=== PATIENT | female | born 1960 | race Caucasian/White ===

== ENCOUNTER → 2017-10-13 14:23 | Outpatient (POV) | payer OTHER, SELFPAY | PROVIDERS: Visit Provider Physician Assistant | DX: Z00.00 Encounter for general adult medical examination without abnormal findings (principal) ==

== ENCOUNTER → 2018-01-12 14:37 | Outpatient (POV) | payer OTHER, SELFPAY | PROVIDERS: Visit Provider Physician Assistant | DX: Z00.00 Encounter for general adult medical examination without abnormal findings (principal) ==

== ENCOUNTER → 2019-05-14 07:24 | Outpatient (CLI) | payer OTHER, SELFPAY ==
[2019-05-14 07:55] LABS: Basophils # 0.1 K/mm3 (0-0.2); Basophils % 1.2 % (0.1-2.0); Eosinophils # 0.8 K/mm3 (0.0-0.4); Eosinophils % 9.2 % (0.1-12.0); Hematocrit 44.9 % (37.0-47.0); Hemoglobin 14.2 g/dL (12.2-16.2); Lymphocytes # 1.4 K/mm3 (0.7-4.5); Lymphocytes % 16.8 % (10-50); Mean Corpuscular HGB Conc 31.7 g/dL (31.8-35.4); Mean Corpuscular Hemoglobin 30.3 pg (27.0-31.2); Mean Corpuscular Volume 95.4 fl (81-99); Mean Platelet Volume 6.9 fl (7.4-10.4); Monocytes # 0.3 K/mm3 (0.1-1.0); Monocytes % 2.9 % (1.7-9.3); Neutrophils % 69.9 % (37.0-80.0); Platelet Count 340 K/mm3 (142-424); Red Cell Distribution Width 13.6 % (11.5-17.5); White Blood Count 8.5 K/mm3 (4.8-10.8)
[2019-05-14 09:44] LABS: Alanine Aminotransferase 28 U/L (12-78); Albumin Level 3.6 gm/dL (3.4-5.0); Albumin/Globulin Ratio 1.3 (1.1-1.8); Alkaline Phosphatase 131 U/L (46-116); Anion Gap 13.1 mEq/L (5-15); Aspartate Amino Transferase 22 U/L (15-37); Bilirubin,Total 0.5 mg/dL (0.2-1.0); Blood Urea Nitrogen 18 mg/dL (7-18); Calcium 9.2 mg/dL (8.5-10.1); Carbon Dioxide 28 mmol/L (21.0-32.0); Chloride 102 mmol/L (98-107); Chol/HDL Ratio 1.9 (1-3.5); Cholesterol 210 mg/dL (140-200); Creatinine,Serum 0.97 mg/dL (0.55-1.02); Estimated Glomerular Filt Rate 59 ml/min (>60); GFR (African American) 71 ML/MIN (>60); Globulin 2.8 gm/dl (1.3-3.2); Glucose 74 mg/dL (74-106); HDL Cholesterol 108 mg/dL (29-89); LDL Cholesterol 88 mg/dL (0-130); Potassium 4.1 mmoL/L (3.5-5.1); Sodium 139 mmol/L (136-145); Thyroid Stimulating Hormone 2.43 uIU/ml (0.358-3.740); Total Protein,Serum 6.4 gm/dL (6.4-8.2); Triglycerides 71 mg/dL (30-200); VLDL Cholesterol 14 mg/dL (0-40)
== END ==
PROVIDERS: Visit Provider Nurse Practitioner Family
DX: Z00.00 Encounter for general adult medical examination without abnormal findings (principal); F41.8 Other specified anxiety disorders
CPT/HCPCS: 36415; 80053; 80061; 84443; 85025

== ENCOUNTER 2019-08-15 17:58 | Emergency (ER) | payer OTHER, SELFPAY ==
[2019-08-15 17:59] VITALS: BP 201/136; PULSE 105; RESP 20; TEMP 36.9; O2SAT 95; BMI 22.7
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
[2019-08-15 18:31] VITALS: BP 197/112; PULSE 98; RESP 20; TEMP 37.1; O2SAT 98
== END 2019-08-15 18:32 ==
PROVIDERS: Emergency Provider Family Medicine
DX: F10.10 Alcohol abuse, uncomplicated (principal); R03.0 Elevated blood-pressure reading, without diagnosis of hypertension; Z88.2 Allergy status to sulfonamides
CPT/HCPCS: 99282

== ENCOUNTER 2020-03-27 06:38 | Emergency (ER) | payer OTHER, SELFPAY ==
[2020-03-27] VITALS (7 sets, daily range): BP systolic 148–188; BP diastolic 87–110; PULSE 78–95; RESP 16–20; TEMP 36.8; O2SAT 92–99; BMI 21.9
--- NOTE | 2020-03-27 07:06 | CT_ITS ---
PROCEDURE: CT ABDOMEN PELVIS W CON CLINICAL INDICATION: LUQ pain Left upper quadrant pain with diarrhea and cramping COMPARISON: No exams were available for comparison TECHNIQUE: IV Contrast: 75ML Isovue 370 Oral Contrast 10ml Gastroview Axial images obtained with sagittal and coronal reformats. All CT scans at the facility use one or more dose reduction, viz: automated exposure control, ma/kV adjustment per patient size (including targeted exams where dose is matched to indication, i.e. head), or iterative reconstruction technique. FINDINGS: Atelectatic change or scarring noted in the lung bases. There is a medium-sized hiatal hernia. Gallbladder appears distended. The liver and spleen have an unremarkable appearance. Unremarkable appearing pancreas. There is thickening the wall of the antrum of the stomach and of the pyloric and duodenal bulb area which may represent gastroduodenitis. The adrenal glands and kidneys are unremarkable. There is a duodenal diverticulum noted Urinary bladder is distended. No evidence of appendicitis or diverticulitis. There are some scattered colonic diverticula. No intestinal obstruction or free air. There are degenerative changes in the lumbar spine. There is a lucent lesion involving the spinous process of L4 well-circumscribed measuring approximately 12 mm. IMPRESSION: 1. Thickening of the antrum and pyloric area of the stomach and duodenal bulb suggesting gastroduodenitis. 2. Medium-sized hiatal hernia 3. Colonic diverticulosis without evidence of diverticulitis Dictated by: Morales Robin MD 03/27/2020 09:31 Morales Robin MD in OV 03/27/2020 09:31
[2020-03-27 07:24] LABS: Microscopic, Urine URINE MICROSCOPIC (MICROSCOPIC)
--- NOTE | 2020-03-27 07:24 | PC.NURSE ---
Pt finished PO contrast at this time.
--- NOTE | 2020-03-27 07:25 | PC.NURSE ---
Contrast drank, radiology aware
[2020-03-27 07:31] LABS: Basophils # 0.1 K/mm3 (0-0.2); Basophils % 0.8 % (0.1-2.0); Eosinophils # 0.1 K/mm3 (0.0-0.4); Eosinophils % 0.7 % (0.1-12.0); Hemoglobin 12.7 g/dL (12.2-16.2); Lymphocytes # 2.2 K/mm3 (0.7-4.5); Lymphocytes % 23.8 % (10-50); Mean Corpuscular HGB Conc 32.5 g/dL (31.8-35.4); Mean Corpuscular Hemoglobin 28.1 pg (27.0-31.2); Mean Corpuscular Volume 86.6 fl (81-99); Mean Platelet Volume 7.2 fl (7.4-10.4); Monocytes # 0.4 K/mm3 (0.1-1.0); Monocytes % 4.2 % (1.7-9.3); Neutrophils # 6.6 K/mm3 (1.8-7.8); Neutrophils % 70.5 % (37.0-80.0); Platelet Count 543 K/mm3 (142-424); Red Cell Distribution Width 14.8 % (11.5-17.5); White Blood Count 9.3 K/mm3 (4.8-10.8)
[2020-03-27 07:37] LABS: Appearance,Urine CLEAR (Clear); Bilirubin,Urine Negative (Negative); Blood, Urine Negative (Negative); Color,Urine YELLOW (Yellow); Glucose,Urine (UA) Negative (Negative); Ketones,Urine Negative (Negative); Leukocyte Esterase,Urine Negative (Negative); Nitrate,Urine Negative (Negative); PH,Urine 5.5 (5.0-8.5); Protein,Urine Negative (Negative); Specific Gravity, Urine <= 1.005 (1.005-1.030); Urobilinogen,Urine 0.2 EU/dl (0.2)
[2020-03-27 07:38] LABS: Chloride 107 mmol/L (98-107); Potassium 4.1 mmoL/L (3.5-5.1); Sodium 141 mmol/L (136-145)
[2020-03-27 07:40] LABS: Alanine Aminotransferase 22 U/L (12-78); Amylase 116 U/L (30-110); Aspartate Amino Transferase 34 U/L (14-36); Blood Urea Nitrogen 10 mg/dl (7-17); Creatinine Clearance Estimated 59 mL/min (50-200); Estimated Glomerular Filt Rate 73 ml/min (>60); GFR (African American) 88 ML/MIN (>60)
[2020-03-27 07:41] LABS: Albumin Level 4.3 g/dl (3.5-5.0); Albumin/Globulin Ratio 1.5 (1.1-1.8); Alkaline Phosphatase 104 U/L (38-126); Anion Gap 12.1 mEq/L (5-15); Bilirubin,Total 0.3 mg/dl (0.2-1.3); Calcium 9.1 mg/dl (8.4-10.2); Carbon Dioxide 26 mmol/L (22.0-30.0); Globulin 2.9 g/dL (1.3-3.2); Glucose 96 mg/dl (74-100); Lipase 323 U/L (23-300); Total Protein,Serum 7.2 g/dl (6.3-8.2)
--- NOTE | 2020-03-27 07:54 | HMH.EDNVD ---
ED Disposition Clinical Impression: Gastroenteritis Disposition: Home, Self-Care Condition on Discharge: Good Instructions: DI for Acute Abdomen Additional Instructions: fluids and call pcp for follow up Referrals: Juarez Kendall MD [Primary Care Provider] - - Critical Care Critical Care Time: No Attestation: On 03/27/20, the high probability of a clinically significant, sudden or life threatening deterioration of the following system(s) required my full and direct attention, intervention and personal management. The time I documented below is in addition to time spent performing reported procedures but includes the following listed in this critical care notation. Medical Decision Making - Medical Records Medical records reviewed: Yes: I reviewed the patient's medical records. - Huber Inquiry Pt receiving controlled substance: No Vital Signs: 03/27/20 06:56 03/27/20 07:30 03/27/20 08:09 Temperature 98.3 F Temperature Source Oral Pulse Rate [Right] 95 H 83 82 Respiratory Rate 16 20 20 Blood Pressure [Left Arm] 169/106 H 163/99 H 173/102 H Blood Pressure Mean [Left Arm] 127 120 125 Blood Pressure Source [Left Arm] Automatic Cuff Automatic Cuff Automatic Cuff Blood Pressure Position [Left Arm] Sitting Sitting Sitting 02 Sat by Pulse Oximetry 98 92 L 99 Oxygen Delivery Method Room Air Room Air Room Air 03/27/20 08:39 03/27/20 10:47 Temperature Temperature Source Pulse Rate [Right] 78 85 Respiratory Rate 18 20 Blood Pressure [Left Arm] 148/87 H 162/105 H Blood Pressure Mean [Left Arm] 107 124 Blood Pressure Source [Left Arm] Automatic Cuff Automatic Cuff Blood Pressure Position [Left Arm] Sitting Sitting 02 Sat by Pulse Oximetry 97 98 Oxygen Delivery Method Room Air - Lab Data Lab results reviewed: Yes: I reviewed the patient's lab results. Lab Results 03/27/20 07:05: Urine Color Yellow, Urine Appearance Clear, Urine pH 5.5, Ur Specific [place] <= 1.005, Urine Protein Negative, Urine Glucose (UA) Negative, Urine Ketones Negative, Urine Blood Negative, Urine Nitrate Negative, Urine Bilirubin Negative, Urine Urobilinogen 0.2, Ur Leukocyte Esterase Negative, Urine WBC 3-5, Ur Squamous Epith Cells 3-5 03/27/20 07:05: WBC 9.3, RBC 4.50, Hgb 12.7, Hct 39.0, MCV 86.6, MCH 28.1, MCHC 32.5, RDW 14.8, Plt Count 543 H, MPV 7.2 L, Neut % (Auto) 70.5, Lymph % (Auto) 23.8, Pender % (Auto) 4.2, Eos % (Auto) 0.7, Baso % (Auto) 0.8, Neut # (Auto) 6.6, Lymph # (Auto) 2.2, Pender # (Auto) 0.4, Eos # (Auto) 0.1, Baso # (Auto) 0.1, ESR 22 03/27/20 07:05: Sodium 141, Potassium 4.1, Chloride 107, Carbon Dioxide 26, Anion Gap 12.1, BUN 10, Creatinine 0.80, Estimated Creat Clear 59, Estimated GFR 73, Est GFR ( Amer) 88, Glucose 96, Calcium 9.1, Total Bilirubin 0.3, AST 34, ALT 22, Alkaline Phosphatase 104, C-Reactive Protein 0.7, Total Protein 7.2, Albumin 4.3, Globulin 2.9, Albumin/Globulin Ratio 1.5, Amylase 116 H, Lipase 323 H, Procalcitonin 0.048 03/27/20 07:05: SARS-CoV-2 IgG Ab (Rapid) Negative, SARS-CoV-2 IgM Ab (Rapid) Negative Result diagrams: 03/27/20 07:05 03/27/20 07:05 Orders (Tests/Meds): ED MEDICATIONS Generic Name Dose Route Start Last Admin Trade Name Freq PRN Reason Stop Dose Admin Sodium Chloride 8 ml 03/27/20 07:06 Sodium Chloride 0.9% 10ml Vial IV 04/26/20 07:05 NEEDED PRN dilute pepcid Discontinued Medications Generic Name Dose Route Start Last Admin Trade Name Freq PRN Reason Stop Dose Admin Diatrizoate Meglum/Diatrizoate Sod 30 ml 03/27/20 07:06 03/27/20 07:10 Diatrizoate Leilani 66% & Diatrizoate Na 10% 30ml Udc PO 03/27/20 07:07 30 ml ONCE ONE Administration Famotidine 20 mg 03/27/20 07:06 03/27/20 07:10 Famotidine 20mg/2ml Vial IV 03/27/20 07:07 20 mg ONCE ONE Administration Sodium Chloride 1,000 mls @ 999 mls/hr 03/27/20 07:15 03/27/20 07:12 Sod Chlor 0.9% 1000ml Bag IV 03/27/20 08:15 999 mls/hr .Q1H1M BALDO Administrat
[2020-03-27 07:57] LABS: Procalcitonin 0.048 ng/mL (0.0-2.0)
[2020-03-27 08:02] LABS: Coronavirus 19 IgG Antibody Negative (Negative); Coronavirus 19 IgM Antibody Negative (Negative)
[2020-03-27 08:03] LABS: Erythrocyte Sedimentation Rate 22 mm/hr (0-30)
[2020-03-27 08:06] LABS: C-Reactive Protein 0.7 mg/L (0-4)
--- NOTE | 2020-03-27 11:33 | PC.NURSE ---
Per MD Santoyo, pt is okay to leave and fu with PCP for blood pressure of 186/110. Pt denies any symptoms at this time
== END 2020-03-27 12:00 | disposition home or self-care (01) ==
PROVIDERS: Emergency Provider Emergency Medicine; PCP Internal Medicine Adolescent Medicine
DX: K52.9 Noninfective gastroenteritis and colitis, unspecified (principal); Z01.84 Encounter for antibody response examination; Z88.2 Allergy status to sulfonamides
CPT/HCPCS: 74177; 80053; 81001; 82150; 83690; 84145; 85025; 85651; 86140; 86328; 96365; 96375; 99284; J2405; Q9967

== ENCOUNTER → 2021-05-08 15:08 | Outpatient (POV) | payer SELFPAY | PROVIDERS: Visit Provider Dermatology | DX: Z00.00 Encounter for general adult medical examination without abnormal findings (principal) ==

== ENCOUNTER → 2021-12-07 10:55 | Outpatient (CLI) | payer BC, SELFPAY ==
--- NOTE | 2021-12-07 11:00 | MM_ITS ---
PROCEDURE INFORMATION: Exam: MG Bilateral Screening 3D Mammography Exam date and time: 12/07/2021 10:57 AM Age: 60 years old Clinical indication: Screening examination TECHNIQUE: Imaging protocol: Bilateral Screening tomosynthesis and 2D mammography including computer-aided detection (CAD) when performed. COMPARISON: 1. MG DMSB DIG MAMM-SCREEN TRICE W/CAD 07/05/2016 9:38 AM 2. MG DMDXUL DIG MAMM-DX UNI-LT 12/21/2015 1:42 PM FINDINGS: MAMMOGRAPHY: Breast composition: The breasts are heterogeneously dense, which may obscure small masses. Mass: None. Architectural distortion: None. Calcifications: No suspicious calcifications. Asymmetric density: None. Skin thickening: None. Axillary adenopathy: None. IMPRESSION: No mammographic evidence of malignancy. Annual screening is recommended unless otherwise clinically indicated. ASSESSMENT: BI-RADS Category 1: Negative
== END ==
PROVIDERS: PCP Internal Medicine Adolescent Medicine; Visit Provider Nurse Practitioner Family
DX: Z12.31 Encounter for screening mammogram for malignant neoplasm of breast (principal)
CPT/HCPCS: 77063; 77067

== ENCOUNTER 2022-09-29 12:09 | Emergency (ER) | payer BC, SELFPAY ==
[2022-09-29 12:09] VITALS: BP 145/85; PULSE 72; RESP 18; TEMP 36.8; O2SAT 96; BMI 23.3
--- NOTE | 2022-09-29 12:24 | EXP.UTC ---
Discharge Plan Disposition Patient Disposition: Home, Self-Care Condition: Good Prescriptions Prescriptions: New amoxicillin [amoxicillin] 875 mg tablet 875 mg PO Q12H Qty: 20 0RF benzonatate [benzonatate] 100 mg capsule 100 mg PO TIDP PRN (Reason: Cough) Qty: 30 0RF methylprednisolone 4 mg Tablets,Dose Pack 4 mg PO DIRECTED Qty: 21 0RF No Action ondansetron 4 MG tablet,disintegrating 4 mg PO Q8HP PRN (Reason: Nausea) Qty: 20 0RF cetirizine 10 MG tablet 10 mg PO DAILY Label Comments: TAKE ONE TABLET BY MOUTH EVERY DAY hydroxyzine HCl 25 MG tablet 25 mg PO DAILY Referrals Follow up/Referrals: Gustavo Altamirano MD [Primary Care Provider] - See instructions Activity Restrictions/Add. Instructions Additional Instructions/Restrictions: Drink plenty of fluids. Take tylenol or ibuprofen for pain or fever. Take the medications as directed. Follow up with your regular doctor. GO TO THE ER FOR ANY WORSENING SYMPTOMS Clinical Impressions Clinical Impression: Bronchitis Instructions Patient Instructions: Acute Bronchitis, DI for Acute Bronchitis Discharge ED Provider: Nitesh Campbell [facility] General Stated complaint: Congestion Time Seen by Provider: 09/29/22 12:24 History of Present Illness Provider Complaint: she c/o chest congestion for the past 1 week. Related Data Home Medications Medication Instructions Recorded Confirmed cetirizine 10 mg tablet 10 mg PO DAILY Allergy symptoms 05/16/19 05/16/19 hydroxyzine HCl 25 mg tablet 25 mg PO DAILY Anxiety 05/16/19 05/16/19 Previous Rx's Medication Instructions Recorded ondansetron 4 mg disintegrating 4 mg PO Q8HP PRN Nausea ##20 07/21/19 tablet amoxicillin 875 mg tablet 875 mg PO Q12H #20 tabs 09/29/22 benzonatate 100 mg capsule 100 mg PO TIDP PRN Cough #30 caps 09/29/22 methylprednisolone 4 mg tablets in 4 mg PO DIRECTED #21 tabs 09/29/22 a dose pack Allergies Allergy/AdvReac Type Severity Reaction Status Date / Time Sulfa (Sulfonamide Allergy Intermediate I-RASH Verified 07/21/19 09:49 Antibiotics) [SULFA (SULFONAMIDE ANTIBIOTICS)] [facility] Disclaimer: The information contained in this section may have been updated after the patient was seen, as this information can be updated by other users. Social History Smoking Status: Never smoker alcohol intake: current current occupational status: employed Travel in the last 8 weeks: None housing: house ROS Obtained: Yes All systems reviewed & no additional complaints except as documented Constitutional Constitutional: Denies chills and Denies fever(s) Eyes Eyes: Denies eye discharge ENT Ears, Nose, Mouth, and Throat: Denies dizziness, Denies otalgia and Denies sore throat Cardiovascular Cardiovascular: Denies chest pain Respiratory Respiratory: Denies shortness of breath, Reports chest congestion, Denies cough, Denies stridor and Denies wheezing Gastrointestinal Gastrointestingal: Denies nausea or vomiting Musculoskeletal Musculoskeletal: Reports system reviewed and no additional complaints, except as documented and Denies arthralgias Integumentary/Breasts Skin/Breast: Denies rash Neurologic Neurologic: Denies dizziness and Denies paresthesias Allergic/Immunologic Allergic/Immunologic: Denies wheezing Physical Exam General General appearance: alert and in no apparent distress Head Head exam: atraumatic, normocephalic and normal inspection Eye Eye exam: Present normal appearance, PERRL and EOMI ENT ENT exam: Present normal exam, normal oropharynx, mucous membranes moist, TM's normal bilaterally and normal external ear exam Neck Neck exam: Present normal inspection, full ROM and trachea midline; Absent meningismus or lymphadenopathy Chest Chest inspection: Present normal inspection and symmetric chest wall rise; Absent tenderness Respiratory Resp
[2022-09-29 13:14] VITALS: BP 145/85; PULSE 72; RESP 18; TEMP 36.8; O2SAT 96
== END 2022-09-29 13:15 | disposition home or self-care (01) ==
PROVIDERS: Emergency Provider Nurse Practitioner Family; PCP Internal Medicine
DX: J20.9 Acute bronchitis, unspecified (principal)
CPT/HCPCS: 99204; 99212; G0463

== ENCOUNTER 2023-10-12 11:30 | Emergency (ER) | payer MEDICARE, SELFPAY ==
[2023-10-12 11:50] VITALS: BP 176/118; PULSE 112; RESP 22; TEMP 36.7; O2SAT 96; BMI 22.8
--- NOTE | 2023-10-12 11:51 | EXP.UTC ---
Discharge Plan Disposition Patient Disposition: Home, Self-Care Condition: Good Prescriptions Prescriptions: New ciprofloxacin HCl [Cipro] 500 mg tablet 500 mg PO BID 10 Days Qty: 20 0RF ondansetron 4 mg Tablet,Disintegrating 4 mg PO Q8H PRN (Reason: Nausea) Qty: 12 0RF Referrals Follow up/Referrals: Juarez Kendall MD [Primary Care Provider] - See instructions Activity Restrictions/Add. Instructions Additional Instructions/Restrictions: Drink plenty of fluids. Take tylenol for pain or fever. Take the medications as directed. Take the zofran for nausea/vomiting. Follow up with your regular doctor within the next 48 hours for a recheck. GO TO THE ER FOR ANY WORSENING SYMPTOMS Clinical Impressions Clinical Impression: Diverticulitis Stand Alone Forms Stand Alone Forms: Work/School Release Instructions Patient Instructions: Diverticulitis, Ondansetron, Ciprofloxacin, DI for Diverticulosis Discharge ED Provider: Nitesh Campbell [facility] General Stated complaint: vomitting, fever, chills Time Seen by Provider: 10/12/23 11:51 History of Present Illness Provider Complaint: She states that for the past 5 days she has had left lower quadrant abdominal pain and tenderness. She has had decreased appetite and n/v also. She states that she has a history of diverticulitis and it felt just like she feels now. Related Data Previous Rx's Medication Instructions Recorded ciprofloxacin HCl 500 mg tablet 500 mg PO BID 10 days #20 tabs 10/12/23 (Cipro) ondansetron 4 mg disintegrating 4 mg PO Q8H PRN Nausea #12 tabs 10/12/23 tablet Allergies Allergy/AdvReac Type Severity Reaction Status Date / Time Sulfa (Sulfonamide Allergy Intermediate I-RASH Verified 07/21/19 09:49 Antibiotics) [SULFA (SULFONAMIDE ANTIBIOTICS)] [facility] Disclaimer: The information contained in this section may have been updated after the patient was seen, as this information can be updated by other users. Medical History (Updated 10/12/23 @ 12:44 by Nitesh Campbell APRN) Depression Anxiety Social History Smoking Status: Never smoker alcohol intake: current alcohol intake frequency: a few times a week current occupational status: employed Travel in the last 8 weeks: None housing: house ROS Obtained: Yes All systems reviewed & no additional complaints except as documented Constitutional Constitutional: Denies chills, Denies fever(s) and Reports poor appetite ENT Ears, Nose, Mouth, and Throat: Denies dizziness and Denies sore throat Cardiovascular Cardiovascular: Denies dyspnea Respiratory Respiratory: Denies chest congestion, Denies cough and Denies dyspnea Gastrointestinal Gastrointestingal: Reports as per HPI Genitourinary Female Genitourinary: Denies difficulty voiding, Denies dysuria, Denies hematuria, Denies urinary frequency, Denies urinary incontinence, Denies urinary hesitancy and Denies urinary urgency Musculoskeletal Musculoskeletal: Denies arthralgias Integumentary/Breasts Skin/Breast: Denies rash Neurologic Neurologic: Denies dizziness Physical Exam General General appearance: alert and in no apparent distress Head Head exam: atraumatic and normocephalic Eye Eye exam: Present normal appearance, PERRL and EOMI ENT ENT exam: Present normal exam, normal oropharynx, mucous membranes moist, TM's normal bilaterally and normal external ear exam Neck Neck exam: Present normal inspection, full ROM and trachea midline; Absent tenderness, meningismus or lymphadenopathy Chest Chest inspection: Present normal inspection and symmetric chest wall rise; Absent tenderness, rash or abscess Respiratory Respiratory exam: Present normal lung sounds bilaterally; Absent respiratory distress, wheezes or stridor Cardiovascular Cardiovascular exam: Present regular rate and normal rhythm; Absent irregular rhythm, systolic murmur, diastolic murmur or JVD Abdominal Exam Abdominal exam: Present soft and normal bowel sounds; Absent distention, tenderness, guarding, rebound, rigidity, psoas sign, obturator sign, heel tap sign, Singh's sign, Rovsing's sign or tenderness at McBurney's Point Extremities Exam Extremities exam: Present normal inspection and full ROM; Absent tenderness Back Exam Back exam: Present normal inspection and full ROM; Absent tenderness, CVA tenderness (R) or CVA tenderness (L) Neurological Exam Neurological exam: Present alert, oriented X3 and CN II-XII intact Psychiatric Psychiatric exam: Present normal affect and normal mood Skin Skin exam: Present warm, dry, intact and normal color Lymphatic Lymphatic Findings: no adenopathy Medical Decision Making Medical Records Medical records reviewed: No I reviewed the patient's medical records. Huber Inquiry Pt receiving controlled substance: No Lab Data Lab results reviewed: Yes I reviewed the patient's lab results. 10/12/23 11:05 10/12/23 11:05
[2023-10-12 12:23] LABS: Basophils # 0.2 K/mm3 (0-0.2); Eosinophils # 0.1 K/mm3 (0.0-0.4); Eosinophils % 0.7 % (0.1-12.0); Hemoglobin 15.8 g/dL (12.2-16.2); Lymphocytes # 1.4 K/mm3 (0.7-4.5); Lymphocytes % 17.3 % (10-50); Mean Corpuscular HGB Conc 32.3 g/dL (31.8-35.4); Mean Corpuscular Hemoglobin 30.1 pg (27.0-31.2); Mean Corpuscular Volume 93.2 fl (81-99); Mean Platelet Volume 7.6 fl (7.4-10.4); Monocytes # 0.5 K/mm3 (0.1-1.0); Neutrophils # 5.7 K/mm3 (1.8-7.8); Platelet Count 453 K/mm3 (142-424); Red Blood Count 5.26 M/mm3 (4.20-5.40); Red Cell Distribution Width 14.2 % (11.5-17.5); White Blood Count 7.8 K/mm3 (4.8-10.8)
[2023-10-12 12:48] VITALS: BP 176/118; PULSE 112; RESP 22; TEMP 36.7; O2SAT 96
[2023-10-12 13:20] LABS: Alanine Aminotransferase 32 U/L (12-78); Albumin Level 4.6 g/dl (3.5-5.0); Albumin/Globulin Ratio 1.5 (1.1-1.8); Alkaline Phosphatase 97 U/L (38-126); Amylase 132 U/L (30-110); Anion Gap 13.5 mEq/L (5-15); Aspartate Amino Transferase 48 U/L (14-36); Bilirubin,Total 0.9 mg/dl (0.2-1.3); Blood Urea Nitrogen 15 mg/dl (7-17); Calcium 9.7 mg/dl (8.4-10.2); Carbon Dioxide 29 mmol/L (22.0-30.0); Chloride 97 mmol/L (98-107); Creatinine Clearance Estimated 56 mL/min (50-200); Estimated Glomerular Filt Rate 72 ml/min (>60); GFR (African American) 87 ML/MIN (>60); Glucose 93 mg/dl (74-100); Lipase 194 U/L (23-300); Potassium 4.5 mmoL/L (3.5-5.1); Sodium 135 mmol/L (136-145); Total Protein,Serum 7.6 g/dl (6.3-8.2)
== END 2023-10-12 12:51 | disposition home or self-care (01) ==
PROVIDERS: Emergency Provider Nurse Practitioner Family; PCP Internal Medicine Adolescent Medicine
DX: K57.32 Diverticulitis of large intestine without perforation or abscess without bleeding (principal); R10.32 Left lower quadrant pain; R11.2 Nausea with vomiting, unspecified
CPT/HCPCS: 80053; 82150; 83690; 85025; 99212; 99214; G0463

== ENCOUNTER 2023-12-30 16:14 | Emergency (ER) | payer MEDICARE, SELFPAY ==
[2023-12-30 17:10] VITALS: BP 150/97; PULSE 109; RESP 20; TEMP 36.4; O2SAT 98; BMI 23.8
--- NOTE | 2023-12-30 17:16 | ED_ITS ---
Discharge Plan Disposition Patient Disposition: Home, Self-Care Condition: Good Prescriptions Prescriptions: No Action ciprofloxacin HCl [Cipro] 500 mg tablet 500 mg PO BID 10 Days Qty: 20 0RF ondansetron 4 mg Tablet,Disintegrating 4 mg PO Q8H PRN (Reason: Nausea) Qty: 12 0RF Referrals Follow up/Referrals: Juarez Kendall MD [Primary Care Provider] - See instructions Activity Restrictions/Add. Instructions Additional Instructions/Restrictions: Rest the affected extremities. Take ibuprofen or tylenon for pain. Follow up with your regular doctor. GO TO THE ER FOR ANY WORSENING SYMPTOMS Clinical Impressions Clinical Impression: Fall, Shoulder pain, Back pain, thoracic Instructions Patient Instructions: How to Prevent Falls Print Language Print Language: Liberian Discharge ED Provider: Nitesh Campbell [facility] General Stated complaint: back, lag pain Time Seen by Provider: 12/30/23 17:16 History of Present Illness Provider Complaint: She states that she fell at home on a wet floor on 12/23. Since then she has had left shoulder pain. She has been off work since then. She request to be released to go back to work tomorrow. She refuses any x-rays. She refuses to be transferred to the er. Related Data Previous Rx's ?Medication ?Instructions ?Recorded ciprofloxacin HCl 500 mg tablet 500 mg PO BID 10 days #20 tabs 10/12/23 (Cipro) ondansetron 4 mg disintegrating 4 mg PO Q8H PRN Nausea #12 tabs 10/12/23 tablet Allergies Allergy/AdvReac Type Severity Reaction Status Date / Time Sulfa (Sulfonamide Allergy Intermediate I-RASH Verified 07/21/19 09:49 Antibiotics) [SULFA (SULFONAMIDE ANTIBIOTICS)] [facility] Disclaimer: The information contained in this section may have been updated after the patient was seen, as this information can be updated by other users. Medical History (Updated 12/30/23 @ 17:21 by Nitesh Campbell APRN) Depression Anxiety Social History Smoking Status: Never smoker alcohol intake: current alcohol intake frequency: a few times a week current occupational status: employed Travel in the last 8 weeks: None housing: house ROS Obtained: Yes All systems reviewed & no additional complaints except as documented Constitutional Constitutional: Denies chills and Denies fever(s) Eyes Eyes: Denies eye discharge ENT Ears, Nose, Mouth, and Throat: Denies dizziness, Denies otalgia and Denies sore throat Cardiovascular Cardiovascular: Denies chest pain Respiratory Respiratory: Denies shortness of breath, Denies chest congestion, Denies cough, Denies stridor and Denies wheezing Gastrointestinal Gastrointestingal: Denies nausea or vomiting Musculoskeletal Musculoskeletal: Reports as per HPI and Reports arthralgias Integumentary/Breasts Skin/Breast: Denies rash Neurologic Neurologic: Denies dizziness and Denies paresthesias Allergic/Immunologic Allergic/Immunologic: Denies wheezing Physical Exam General General appearance: alert and in no apparent distress Head Head exam: atraumatic, normocephalic and normal inspection Eye Eye exam: Present normal appearance, PERRL and EOMI ENT ENT exam: Present normal exam, normal oropharynx, mucous membranes moist, TM's normal bilaterally and normal external ear exam Neck Neck exam: Present normal inspection, full ROM and trachea midline; Absent meningismus or lymphadenopathy Chest Chest inspection: Present normal inspection and symmetric chest wall rise; Abse nt tenderness Respiratory Respiratory exam: Present normal lung sounds bilaterally; Absent respiratory distress Cardiovascular Cardiovascular exam: Present regular rate and normal rhythm; Absent JVD Abdominal Exam Abdominal exam: Present soft and normal bowel sounds; Absent distention, tenderness or guarding Extremities Exam Extremities exam: Present normal inspection, full ROM and normal capillary re fill; Absent calf tenderness Back Exam Back exam: Present normal inspection; Absent tenderness Neurological Exam Neurological exam: Present alert and oriented X3 Psychiatric Psychiatric exam: Present normal affect and normal mood Skin Skin exam: Present warm, dry, intact and normal color Lymphatic Lymphatic Findings: no adenopathy Medical Decision Making Medical Records Medical records reviewed: No I reviewed the patient's medical records. Huber Inquiry Pt receiving controlled substance: No
[2023-12-30 17:25] VITALS: BP 150/97; PULSE 109; RESP 20; TEMP 36.4; O2SAT 98
== END 2023-12-30 17:27 | disposition home or self-care (01) ==
PROVIDERS: Emergency Provider Nurse Practitioner Family; PCP Internal Medicine Adolescent Medicine
DX: M25.512 Pain in left shoulder (principal); M54.6 Pain in thoracic spine; W01.10XA Fall on same level from slipping, tripping and stumbling with subsequent striking against unspecified object, initial encounter
CPT/HCPCS: 99212; 99213; G0463

== ENCOUNTER 2024-01-11 11:25 | Emergency (ER) | payer MEDICARE, SELFPAY ==
[2024-01-11 11:45] VITALS: BP 142/97; PULSE 123; RESP 20; TEMP 37; O2SAT 98; BMI 23.1
--- NOTE | 2024-01-11 12:03 | EXP.UTC ---
Discharge Plan Disposition Patient Disposition: Home, Self-Care Condition: Good Prescriptions Prescriptions: No Action ciprofloxacin HCl [Cipro] 500 mg tablet 500 mg PO BID 10 Days Qty: 20 0RF ondansetron 4 mg Tablet,Disintegrating 4 mg PO Q8H PRN (Reason: Nausea) Qty: 12 0RF Referrals Follow up/Referrals: Juarez Kendall MD [Primary Care Provider] - See instructions Activity Restrictions/Add. Instructions Additional Instructions/Restrictions: *Monitor Temp, Over the counter Motrin or Tylenol as directed/as needed Tylenol every 4 hours and Motrin every 6 hours (as long as your family doctor has told you that you can take it) for fever or pain. and straight to ER if unable to lower temp less than 101.0 after medication given *Warm salt water gargles may help to soothe the throat *Throat Lozenges? *Warm fluids like tea with honey may help to soothe the throat? *Sleep elevated Follow up IMMEDIATELY for new or worsening symptoms or no Noticeable improvement over the next 48-72 hours. 911 for difficulty breathing or swallowing Clinical Impressions Clinical Impression: Viral syndrome Stand Alone Forms Stand Alone Forms: Work/School Release Instructions Patient Instructions: DI for Viral Syndrome Print Language Print Language: Setswana Discharge ED Provider: Estrellita Wakefield [facility] [place] HPI General Stated complaint: covid pos 01/04, fever Time Seen by Provider: 01/11/24 12:40 History of Present Illness Provider Complaint: Patient states that she tested positive for COVID at [facility] on 01/04 and has been out of work since then States she came in today to get a Doctors note backed up for the days that she was out of work 01/04 through 01/10 and not been having a fever Related Data Previous Rx's ?Medication ?Instructions ?Recorded ciprofloxacin HCl 500 mg tablet 500 mg PO BID 10 days #20 tabs 10/12/23 (Cipro) ondansetron 4 mg disintegrating 4 mg PO Q8H PRN Nausea #12 tabs 10/12/23 tablet Allergies Allergy/AdvReac Type Severity Reaction Status Date / Time Sulfa (Sulfonamide Allergy Intermediate I-RASH Verified 07/21/19 09:49 Antibiotics) [SULFA (SULFONAMIDE ANTIBIOTICS)] PFSH PFSH Disclaimer: The information contained in this section may have been updated after the patient was seen, as this information can be updated by other users. Medical History (Updated 01/11/24 @ 12:26 by Estrellita Wakefield APRN) Depression Anxiety Social History Smoking Status: Never smoker alcohol intake: current alcohol intake frequency: a few times a week current occupational status: employed Travel in the last 8 weeks: None housing: house ROS Obtained: Yes All systems reviewed & no additional complaints except as documented and Yes Systems reviewed as appropriate & no additional complaints except as documented Constitutional Constitutional: Reports system reviewed and no additional complaints, except as documented and Reports as per HPI ENT Ears, Nose, Mouth, and Throat: Reports system reviewed and no additional complaints, except as documented and Reports as per HPI Cardiovascular Cardiovascular: Reports system reviewed and no additional complaints, except as documented and Reports as per HPI Respiratory Respiratory: Reports system reviewed and no additional complaints, except as documented and Reports as per HPI Gastrointestinal Gastrointestingal: Reports system reviewed and no additional complaints, except as documented and as per HPI Physical Exam General General appearance: alert and in no apparent distress ENT ENT exam: Present mucous membranes moist Respiratory Respiratory exam: Present normal lung sounds bilaterally; Absent respiratory distress or wheezes Cardiovascular Cardiovascular exam: Present regular rate, normal rhythm and normal heart sounds Neurological Exam Neurological exam: Present alert, oriented X3 and normal gait Medical Decision Making Huber Inquiry Pt receiving controlled substance: No Huber was queried for this patient: No Medical Decision Narrative: Explained to patient that she was not tested and reported positive here in clinic and could not back date a note for the as she was not seen and dx with COVID in this facility, that she may be able to go to where she was tested and dx and get one however she was not seen and dx here and patient was educated on the new CDC guidelines patient was upset demanding a note or she may get fired and again explained to the patient that I did not see her and dx her with COVID therefore I cannot back date a work note she needed to go where she was tested and dx to get the note Unit Control Worker aware
[2024-01-11 12:36] VITALS: BP 142/97; PULSE 123; RESP 20; TEMP 37; O2SAT 98
== END 2024-01-11 12:40 | disposition home or self-care (01) ==
PROVIDERS: Emergency Provider Nurse Practitioner; PCP Internal Medicine Adolescent Medicine
DX: Z02.89 Encounter for other administrative examinations (principal)
CPT/HCPCS: 99211; 99212; G0463

== ENCOUNTER 2024-01-21 12:24 | Outpatient (CLI) | payer MEDICARE, SELFPAY ==
--- NOTE | 2024-01-21 12:27 | CA_ITS ---
APPROVED REPORT EXAM: Comprehensive 2D, Doppler, and color-flow Echocardiogram [employer]pga Design Engineer: Nina Otto CRT Ht: 5 ft 2 in Wt: 132lbs BSA: 1.60 BP: 104/96 mmHg Indications: Murmur, covid 01-05-24 2D Dimensions LA Volume 48.30 mL LA Volume Index 29.50 mL/m2 (M/F) 16-34 M-Mode Dimensions RVDd 2.15 cm (0.9-2.6) LA Diam 2.77 cm (1.9-4.0) LVDd 4.26 cm (3.5-5.7) LVDs 2.61 cm (3.5-5.7) IVSd 1.13 cm (0.6-1.1) PWd 0.64 cm (0.6-1.1) EF (Teich) 69.50% FS 38.70% EDV (Teich) 81.30 mL ESV (Teich) 24.80 mL LV Diastology E Decel Time 150 (160-240 msec) E/A Ratio 0.62 MED A' 13.20 cm/s LAT A' 12.10 cm/s Aortic Valve AO Peak GR. 11.40 mmHg Mitral Valve MV E Max Brett. 67.0 (40-130 cm/s) MV A Velocity 109.0 (40-130 cm/s) E/A Ratio 0.62 MV PHT 44.0 ms Pulmonary Valve PV Peak Velocity 120.0 (50-150 cm/s) Tricuspid Valve TR P. Velocity 275.00 cm/s RAP Estimate 10.00 mmHg RVSP 40.30 mmHg Left Ventricle The left ventricle is normal size. The left ventricular systolic function is normal. The left ventricular ejection fraction is within the normal range. There is increased LV wall thickness. There is normal LV segmental wall motion. Transmitral Doppler flow pattern suggests impaired LV relaxation. LVEF is 55%. Right Ventricle The right ventricle is normal size. The right ventricular systolic function is normal. Atria The left atrium size is normal. The right atrium size is normal. There is no Doppler evidence of interatrial shunt. Aortic Valve The aortic valve is mildly thickened. There is no aortic valvular stenosis. Trace aortic regurgitation is present. Mitral Valve The mitral valve is normal in structure. No evidence of mitral valve stenosis. Trace mitral regurgitation. Tricuspid Valve Tricuspid valve is grossly normal in structure and function. Trace tricuspid regurgitation. There is insufficient TR jet to estimate RVSP. Pulmonic Valve The pulmonary valve is normal in structure. Trace pulmonic regurgitation. Great Vessels The aortic root is normal in size. The ascending aorta is not well-visualized. IVC is normal in size and collapses >50% with inspiration. Pericardium There is no pericardial effusion. Other Information Study Quality: Fair Conclusion Normal biventricular systolic function. No significant valvular stenosis or regurgitation. Electronically signed by : Teresa Stephens MD 01/22/2024 11:36:14
== END 2024-01-21 23:59 | disposition home or self-care (01) ==
LOC: RT 12:25
PROVIDERS: PCP Internal Medicine Adolescent Medicine; Visit Provider Internal Medicine
DX: R01.1 Cardiac murmur, unspecified (principal); R42 Dizziness and giddiness
CPT/HCPCS: 93306

== ENCOUNTER 2024-07-22 11:59 | Outpatient (CLI) | payer MEDICARE, MEDICAID, SELFPAY ==
--- NOTE | 2024-07-22 12:03 | XR_ITS ---
FINAL REPORT TECHNIQUE: 5 views CLINICAL HISTORY: LEFT FLANK PAIN, pt has had this back pain for a year, pt has had zero surgeries in her lower back. pt stated that she has diverticulitis COMPARISON: None FINDINGS: There is no fracture present. There is grade 1 anterolisthesis of L4 on L5. There is mild retrolisthesis of L2 on L3. Multilevel degenerative disc disease is present, most pronounced at the L1-2 and L5-S1 levels. IMPRESSION: Degenerative change as described, without acute bony abnormality. Reviewed, Interpreted and Dictated by Radha Cameron MD Transcribed by Kemi Payton Authenticated and [facility]
[2024-07-22 12:47] LABS: Basophils # 0.1 K/mm3 (0-0.2); Basophils % 0.5 % (0.1-2.0); Eosinophils % 0.3 % (0.1-12.0); Hematocrit 43.4 % (37.0-47.0); Hemoglobin 14.2 g/dL (12.2-16.2); Lymphocytes # 1.6 K/mm3 (0.7-4.5); Lymphocytes % 14.9 % (10-50); Mean Corpuscular HGB Conc 32.7 g/dL (31.8-35.4); Mean Corpuscular Hemoglobin 30.3 pg (27.0-31.2); Mean Corpuscular Volume 92.5 fl (81-99); Mean Platelet Volume 8.6 fl (7.4-10.4); Monocytes # 0.8 K/mm3 (0.1-1.0); Monocytes % 7.8 % (1.7-9.3); Neutrophils # 8.2 K/mm3 (1.8-7.8); Neutrophils % 76.3 % (37.0-80.0); Platelet Count 397 K/mm3 (142-424); Red Blood Count 4.69 M/mm3 (4.20-5.40); Red Cell Distribution Width 13.8 % (11.5-17.5); White Blood Count 10.7 K/mm3 (4.8-10.8)
[2024-07-22 13:05] LABS: Albumin Level 4.6 g/dl (3.5-5.0); Chloride 103 mmol/L (98-107); Potassium 4.2 mmoL/L (3.5-5.1); Sodium 139 mmol/L (136-145)
[2024-07-22 13:08] LABS: Alanine Aminotransferase 19 U/L (12-78); Albumin/Globulin Ratio 2.2 (1.1-1.8); Alkaline Phosphatase 87 U/L (38-126); Amylase 113 U/L (30-110); Anion Gap 12.2 mEq/L (5-15); Aspartate Amino Transferase 29 U/L (14-36); Bilirubin,Total 0.7 mg/dl (0.2-1.3); Blood Urea Nitrogen 18 mg/dl (7-17); Calcium 9.8 mg/dl (8.4-10.2); Carbon Dioxide 28 mmol/L (22.0-30.0); Estimated Glomerular Filt Rate 72 ml/min (>60); GFR (African American) 87 ML/MIN (>60); Globulin 2.1 g/dL (1.3-3.2); Glucose 67 mg/dl (74-100); Lipase 282 U/L (23-300); Total Protein,Serum 6.7 g/dl (6.3-8.2)
== END 2024-07-22 23:59 | disposition home or self-care (01) ==
LOC: LAB 12:00
PROVIDERS: PCP Nurse Practitioner Family; Visit Provider Nurse Practitioner Family
DX: R10.32 Left lower quadrant pain (principal)
CPT/HCPCS: 36415; 72110; 80053; 82150; 83690; 85025

== ENCOUNTER 2024-08-04 07:38 | Outpatient (CLI) | payer MEDICARE, MEDICAID, SELFPAY ==
--- NOTE | 2024-08-04 07:43 | CT_ITS ---
FINAL REPORT TECHNIQUE: IV contrast enhanced exam This study was performed with techniques to keep radiation doses as low as reasonably achievable, (ALARA). Individualized dose reduction techniques using automated exposure control or adjustment of mA and/or kV according to the patient''s size were employed. CLINICAL HISTORY: LLQ PAIN COMPARISON: 03/27/2020 FINDINGS: Abdomen: No acute density is seen within the lung bases. A moderate-sized hiatal hernia is noted. The gallbladder is unremarkable. Solid abdominal organs are unremarkable. No bowel obstruction is present. There is no free air. No fluid collection is seen. There is no adenopathy. Pelvis: The appendix is not visualized but there are no secondary findings of appendicitis. There is no bowel wall thickening. There is moderate sigmoid diverticulosis. There is no free fluid. The uterus and ovaries are unremarkable. IMPRESSION: No acute abnormality. Reviewed, Interpreted and Dictated by Bruce Cartagena MD Transcribed by Carmel aHile Authenticated and [facility]
[2024-08-04] MEDS: IOPAMIDOL-370 (76%);100ML BOTTLE 75 ML IV (08:09)
[2024-08-04] MEDS: SODIUM CHLORIDE 0.9% 10ML SYR (RAD ONLY) 10 ML IV (08:09)
--- OUTSIDE RECORDS SUMMARY | 2024-08-05 21:42 | XMS_ITS ---
Author Organization Unknown TREATMENT PLAN [facility] Start Date Provider Encounter for Check-up [id number] [facility]
--- OUTSIDE RECORDS SUMMARY | 2024-08-05 21:42 | XMS_ITS | Data Portability ---
Author Organization [facility] & [facility] ADMIN Address [address] [place] [id number] Care Team Providers Care Cell Changer Name Role Phone XAVI GARZA Primary Care Provider Assessment No assessment recorded. Plan of Treatment Reminders Order Date Submit Date Provider Last Modified By Organization Details Last Modified Time Details Appointments OV EST 15 025 11:15AM SONDRA MURPHY Not available Not available Not available Lab None record ed. Referral None record ed. Procedures None record ed. Surgeries None record ed. Imaging None record ed. Medication Orders None record ed. Patient TargetsNo targets recorded. Patient InstructionsNo instructions recorded. Reason for Referral None Reported. Results Created Date Observation Date Name Description Value Unit Range Abnormal Flag Note LastModifiedBy Organization Detail LastModifiedTime 08/10/19 23 08/09/2022 audio gram No observ ation record ed. [email or web address] Not Available 2022 12:26:38 Result Notes None recorded. Problems Name Problem SNOMED Code Status Onset Date Resolution Date Notes Provider Name and Address Organization Details Recorded Time Sensorineural hearing loss [id number] Active 2022 SONDRA MURPHY [address] [place] [address], [id number] [place] [address] & [place] 3 12:24:12 Problem Notes None recorded. Procedures Surgical History None recorded. Imaging Results Imaging Date Name Status LastModified by Organiz ation Details LastModified Time 08/09/2022 audiogram completed [email or web address] Information no t available 08/09/2022 12:26:38 Procedure Notes None recorded. Medical Equipment None Reported. Allergies No known drug allergies Medications Name Sig Start Date Stop Date Status Note LastModified by Organization Details LastModified Time amoxicillin 500 mg capsule TAKE TWO CAPSULES BY MOUTH EVERY TWELVE HOURS FOR 10 DAYS -- FINISH ALL MEDICINE -- active Not Available Not Available Not Available prednisone 20 mg tablet TAKE ONE TABLET BY MOUTH TWICE DAILY FOR 7 DAYS -- FINISH ALL MEDICINE -- --TAKE WITH FOOD-- active Not Available Not Available No t Available ciprofloxaci n 500 mg tablet TAKE 1 TABLET BY MOUTH TWICE DAILY FOR 10 DAYS active Not Available Not Available No t Available amoxicillin 875 mg tablet TAKE ONE TABLET BY MOUTH EVERY TWELVE HOURS FOR 10 DAYS -- FINISH ALL MEDICINE -- active Not Available Not Available Not Available benzonatate 100 mg capsule TAKE ONE CAPSULE BY MOUTH THREE TIMES DAILY NEEDED FOR cough -SWALLOW WHOLE. DO NOT CRUSH OR CHEW- active Not Available Not Available No t Available pantoprazole 40 mg tablet,delay ed release TAKE ONE TABLET BY MOUTH EVERY DAY active Not Available Not Available No t Available methylpredni solone 4 mg tablets in a dose pack TAKE ACCORDING TO PACKAGE INSTRUCTION S --TAKE WITH FOOD-- -- FINISH ALL MEDICINE -- active Not Available Not Available Not Available ondansetron 4 mg disintegrati ng tablet DISSOLVE 1 TABLET IN MOUTH EVERY 8 HOURS NEEDED FOR NAUSEA active Not Available Not Available No t Available hydroxyzine pamoate 25 mg capsule TAKE ONE CAPSULE BY MOUTH TWICE DAILY MAY CAUSE DROWSINESS active Not Available Not Available N ot Available escitalopram 20 mg tablet TAKE ONE TABLET BY MOUTH EVERY DAY active Not Available Not Available No t Available Vitals None Recorded Social History None recorded. Functional Status None recorded. Mental Status None recorded. Family History Nothing Reported. Medical History No medical history recorded. Gynecological HistoryNo gynecological history recorded. Obstetrics History GPAL:G 0 P 0 0 0 0 Past Encounters Encounter ID Performer Location Encounter Start Date Encounter Closed Date Diagnosis/Indication Diagnosis SNOMED-CT Code Diagnosis ICD10 Code Diagnosis Note [id number] SONDRA MURPHY [facility] [place] [address] [place] [phone] 08/09/2022 11:16:49 08/09/2022 11:30:11 Sensorineural hearing loss 48673314 H90.3 [id number] SONDRA MURPHY [facility] [address] [place] [address] 09/27/2022 09:25:55 09/27/2022 09:26:22 Sensorineural hearing loss [id number] H90.3 [id number] SONDRA MURPHY [facility] [place] [id number] [address] [facility] [place] [address] 03/11/2023 14:49:58 03/11/2023 14:53:27 Sensorineural hearing loss 16973184 H90.3 [id number] SONDRA MURPHY [facility] [place] [id number] [address] [facility] [place] [address] 07/16/2023 13:54:55 07/16/2023 14:04:50 Sensorineural hearing loss [id number] H90.3 Health Concerns Section Related Observation LastModified by Organization Detai ls LastModified Time None Recorded Concern Status LastModified by Organization Details LastModified Time None Recorded Advance Directives Directive None Recorded Payers Encounter Date Sequence Insurance Name Policy Number Policy Black Covered Member ID Black Member ID Guarantor Name 03/11/2023 [employer] Adam Alyssa ALYSSA, ADAM ALYSSA, ADAM Adam Alyssa 07/16/2023 [employer] Adam Alyssa ALYSSA, ADAM ALYSAS, ADAM Adam Alyssa Notes Date Note Type Note Provider Name and Address Organization Details Recorded Time 08/09/2022 text/html Ms. Martins was se en today for an audiologic evaluation due to long-standing hearing loss bilaterally. Ms. Martins reports that she has had hearing loss since , however, it has gradually worsened over time. She denies drainage, aural fullness/pressure, and excessive noise exposure. She reports significant communication difficulties at work. Otoscopic inspection was unremarkable bilaterally. SONDRA MURPHY [address] [facility],[address], [place], [address], [place] - [facility] - [place] & [place] 08/09/2022 12:26:41 09/27/2022 text/html Ms. Martins was se en today for a hearing aid fitting via vocational rehabilitation. Ms. Martins was fit with [employer]ron Moxi B7-R AUGUSTINE hearing aids bilaterally. She was instructed on proper use, function and cleaning. F/u prn. SONDRA MURPHY [address], [place], [address], [place] - [facility] & [place] 09/27/2022 09:27:45 03/11/2023 text/html Patient was seen today for a hearing aid service. Cleaned and adjusted hearing aids this date. KEENAN SNELL, AUD [address], [place], [address], [place] - [facility] & [place] 03/11/2023 14:54:02 07/16/2023 text/html Patient was seen today for a hearing aid service. Cleaned and adjusted hearing aids this date. KEENAN SNELL, AUD [address] , [place], [address], [place] - [facility] & [place] 07/16/2023 14:04:42 OBGyn Episode No OBEpisode recorded.
== END 2024-08-04 23:59 | disposition home or self-care (01) ==
LOC: RAD 07:39
PROVIDERS: PCP Nurse Practitioner Family; Visit Provider Nurse Practitioner Family
DX: R10.32 Left lower quadrant pain (principal)
CPT/HCPCS: 74177; Q9967